=== PATIENT | male | born 1960 | race Caucasian/White ===

== ENCOUNTER → 2017-07-21 | Outpatient (CLI) | payer OTHER ==
[2017-07-21 09:37] LABS: BLOOD UREA NITROGEN 17 mg/dl (7-20)
[2017-07-21 09:37] LABS: CREATININE 0.71 mg/dl (0.61-1.24)
== END | disposition home or self-care (01) ==
LOC: LAB 08:46
DX: Z01.818 Encounter for other preprocedural examination (principal)
CPT/HCPCS: 82565; 84520